=== PATIENT | male | born 1945 | race Caucasian/White ===

== ENCOUNTER 2019-02-15 15:32 | Inpatient (IN) | payer MEDICARE, MEDICAID ==
[~2019-02-15] VITALS: Ht 172.7 cm; Wt 71.4 kg
[~2019-02-15 15:32] MED LIST: ACID1TAB7 PO; DAPT500V6 IV; DOCU-131 PO; FERR325T18 PO; HYDR-3237 PO; INSU100I28 SQ-INSULIN; LISI-170 PO; ONDA4TAB10 PO; [UNRECOGNIZED DRUG - REMARK]
[2019-02-15 16:30] LABS: ALANINE AMINOTRANSFERASE 17 U/L (12-78); ALBUMIN 1.8 g/dL (3.4-5.0); ANION GAP 6 mmol/L (5-15); CALCIUM 8.9 mg/dL (8.5-10.1); CHLORIDE 104 mmol/L (98-107)
--- NOTE | 2019-02-15 16:35 | NUR ---
pt presents to ED with family , pt is hungarian speaking primarily, refusing [employer] at this time, electing to have family translate. daughter is at bedside translating for pt. pt states he has had left foot ulcer for last several months, but noticed "lately" it has been getting bigger. left foot is swollen, pt unable to state if this is different from his baseline. left dorsalis pedis pulse is 3+, cms intact. pt a&o, resps even and unlabored. call light in reach. awaiting lab and xray results at this time.
[2019-02-15 16:37] LABS: ALKALINE PHOSPHATASE 73 U/L (45-117); BILIRUBIN,TOTAL 0.3 mg/dL (0.2-1.0); TOTAL PROTEIN 8.7 g/dL (6.4-8.2)
[2019-02-15 16:53] LABS: BASOPHILS # (AUTO) 0.03 x10^3/uL (0-0.1); BASOPHILS % (AUTO) 0 % (0-1); EOSINOPHILS # (AUTO) 0.17 x10^3/uL (0-0.4); EOSINOPHILS % (AUTO) 2 % (1-7); HCT (SEDRATE) 33.1 % (39.2-51.8); LYMPHOCYTES # (AUTO) 1.73 x10^3/uL (1-3.4); LYMPHOCYTES % (AUTO) 20 % (22-44); MD MORPH REVIEW ONLY; MEAN CORPUSCULAR HEMOGLOBIN 27.3 pg (27.5-34.5); MEAN CORPUSCULAR HGB CONC 32.8 g/dL (33.2-36.2); MEAN CORPUSCULAR VOLUME 83.2 fL (81-97); MEAN PLATELET VOLUME 8.3 fL (7.4-10.4); MONOCYTES # (AUTO) 0.73 x10^3/uL (0.2-0.8); MONOCYTES % (AUTO) 8 % (2-9); NEUTROPHILS # (AUTO) 6.12 x10^3/uL (1.8-6.8); NEUTROPHILS % (AUTO) 70 % (42-75); PLATELET COUNT 528 x10^3/uL (130-400); RED BLOOD COUNT 3.98 x10^6/uL (4.38-5.82); RED CELL DISTRIBUTION WIDTH 15.8 % (9.4-14.8)
[2019-02-15 16:54] LABS: ANISOCYTOSIS 1+; HYPOCHROMIA 1+; MICROCYTOSIS 1+
[2019-02-15 16:55] LABS: <PLATELET ESTIMATE> INCREASED; <PLT MORPHOLOGY> NORMAL PLT MORPH; POLYCHROMASIA 1+
[2019-02-15] MEDS ORDERED: VANCOMYCIN PER PHARMACY MC PRN ×2 (17:00→17:30)
[2019-02-15] MEDS ORDERED: AMPICILLIN/SULBACTAM 3 GM in SODIUM CHLORIDE 0.9% 100 ML IV ONE (17:00)
[2019-02-15] MEDS ORDERED: PHARMACY INSTRUCTION MC SCH (17:30)
[2019-02-15] MEDS ORDERED: ACETAMINOPHEN 325 MG TABLET PO PRN (17:30)
[2019-02-15] MEDS ORDERED: VANCOMYCIN PMX 1GM/200ML 200 ML IV ONE (17:30)
[2019-02-15] MEDS ORDERED: ONDANSETRON 2MG/ML, 2ML IVPush PRN (17:30)
[2019-02-15] MEDS ORDERED: GABAPENTIN 300 MG CAPSULE PO PRN (17:30)
[2019-02-15] MEDS ORDERED: TEMAZEPAM 15 MG CAPSULE PO PRN (17:30)
[2019-02-15] MEDS ORDERED: hydrALAzine 20 MG/ML, 1ML IVPush PRN (17:30)
[2019-02-15] MEDS ORDERED: AMPICILLIN/SULBACTAM 3 GM in SODIUM CHLORIDE 0.9% 100 ML IV SCH (17:30)
[2019-02-15] MEDS: INSULIN LISPRO 100 UNITS/ML, PEN SQ-INSULIN SCH ×2 (17:30→22:00)
[2019-02-15] MEDS ORDERED: VANCOMYCIN 1,900 MG in SODIUM CHLORIDE 0.9% 250 ML IV ONE (17:30)
[2019-02-15] MEDS ORDERED: diabetes med PO (17:34)
[2019-02-15] MEDS ORDERED: bp med PO (17:34)
--- NOTE | 2019-02-15 17:34 | NUR ---
pt unable to recall home meds, states he takes one PO bp med and one PO diabetes med qday. pt unable to recall name of his pharmacy for RN to verify home meds at this time.
[2019-02-15 17:43] LABS: HEMOGLOBIN A1C 7.9 % (4.2-6.3)
--- NOTE | 2019-02-15 17:48 | NUR ---
report given to FARZANA Haq, pt awaiting transport to medical floor.
--- NOTE | 2019-02-15 17:55 | NUR ---
LATE ENTRY D/T PATIENT CARE: PT'S WOUND CLEANSED AND DRESSED. PT EDUCATED REGARDING POC, AGREEABLE TO ADMISSION. PT TRANSPORTED TO MEDICAL FLOOR, NADN AT TRANSPORT.
[2019-02-15] MEDS ORDERED: PHARMACOKINETIC MONITORING MC PRN (18:00)
[2019-02-15] MEDS ORDERED: PHARMACOKINETIC CONSULTATION MC ONE (18:00)
[2019-02-15 18:10] VITALS: BP 139/71
[2019-02-15 19:43] VITALS: BP 151/77
[2019-02-15] MEDS: LISINOPRIL 10 MG TABLET PO SCH (21:43)
[2019-02-15] MEDS: HEPARIN 5,000 UNITS/ML, 1ML SQ SCH (21:44)
[2019-02-16] MEDS: AMPICILLIN/SULBACTAM 3 GM in SODIUM CHLORIDE 0.9% 100 ML IV SCH ×3 (00:52→16:52)
[2019-02-16 01:16] VITALS: BP 123/68
[2019-02-16 05:09] LABS: CREATININE 1.85 mg/dL (0.7-1.3)
[2019-02-16] MEDS: HEPARIN 5,000 UNITS/ML, 1ML SQ SCH ×3 (05:24→21:31)
[2019-02-16] MEDS: INSULIN LISPRO 100 UNITS/ML, PEN SQ-INSULIN SCH ×4 (07:00→21:00)
[2019-02-16] MEDS: LISINOPRIL 10 MG TABLET PO SCH ×2 (08:43→21:31)
[2019-02-16 09:50] VITALS: BP 110/64
[2019-02-16 12:12] VITALS: BP 126/69
[2019-02-16 19:54] VITALS: BP 124/64
[2019-02-17] MEDS: AMPICILLIN/SULBACTAM 3 GM in SODIUM CHLORIDE 0.9% 100 ML IV SCH ×3 (00:51→17:18)
[2019-02-17 01:26] VITALS: BP 129/68
[2019-02-17] MEDS: HEPARIN 5,000 UNITS/ML, 1ML SQ SCH ×3 (05:37→21:05)
[2019-02-17 05:48] LABS: % IRON SATURATION 18 % (20-55); ANION GAP 5 mmol/L (5-15); CALCIUM 8.8 mg/dL (8.5-10.1); CHLORIDE 106 mmol/L (98-107); CREATININE 1.75 mg/dL (0.7-1.3); IRON LEVEL 25 mcg/dL (65-175); TOTAL IRON BINDING CAPACITY 142 mcg/dL (250-450)
[2019-02-17 05:50] LABS: VANCOMYCIN,TROUGH 11.2 mcg/mL (5.0-10.0)
[2019-02-17] MEDS ORDERED: VANCOMYCIN 1,900 MG in SODIUM CHLORIDE 0.9% 250 ML IV ONE (06:30)
[2019-02-17] MEDS: INSULIN LISPRO 100 UNITS/ML, PEN SQ-INSULIN SCH ×4 (07:00→21:00)
[2019-02-17 08:24] VITALS: BP 149/78
[2019-02-17 08:45] VITALS: BP 130/75
[2019-02-17] MEDS: LISINOPRIL 10 MG TABLET PO SCH ×2 (08:55→21:00)
[2019-02-17] MEDS: FERROUS SULFATE 325 MG TABLET PO SCH ×3 (08:55→17:16)
[2019-02-17 13:50] VITALS: BP 122/67
[2019-02-17 19:29] VITALS: BP 118/64
[2019-02-18] MEDS: AMPICILLIN/SULBACTAM 3 GM in SODIUM CHLORIDE 0.9% 100 ML IV SCH ×3 (00:56→16:10)
[2019-02-18 01:05] VITALS: BP 112/68
[2019-02-18] MEDS: HEPARIN 5,000 UNITS/ML, 1ML SQ SCH ×3 (05:35→19:47)
[2019-02-18 06:01] LABS: ANION GAP 3 mmol/L (5-15); CHLORIDE 107 mmol/L (98-107)
[2019-02-18 06:03] LABS: CREATININE 1.82 mg/dL (0.7-1.3)
[2019-02-18 06:58] VITALS: BP 114/68
[2019-02-18] MEDS: INSULIN LISPRO 100 UNITS/ML, PEN SQ-INSULIN SCH ×4 (07:00→20:14)
[2019-02-18] MEDS: FERROUS SULFATE 325 MG TABLET PO SCH ×3 (08:00→17:00)
[2019-02-18] MEDS: LISINOPRIL 10 MG TABLET PO SCH ×2 (09:00→19:50)
[2019-02-18 12:50] VITALS: BP 117/72
[2019-02-18] MEDS ORDERED: hydrALAzine 20 MG/ML, 1ML IV PRN (15:30)
[2019-02-18] MEDS ORDERED: METOPROLOL 1 MG/ML, 5ML IV PRN (15:30)
[2019-02-18] MEDS ORDERED: DIPHENHYDRAMINE 50 MG/ML, 1ML IVPush PRN (15:30)
[2019-02-18] MEDS ORDERED: HYDROmorphone 2 MG/ML, 1ML IVPush PRN (15:30)
[2019-02-18] MEDS ORDERED: HALOPERIDOL 5 MG/ML IV PRN (15:30)
[2019-02-18] MEDS ORDERED: LABETALOL 5MG/ML, 20ML IV PRN (15:30)
[2019-02-18] MEDS ORDERED: FENTANYL PF 100 MCG/2ML IV PRN (15:30)
[2019-02-18] MEDS ORDERED: PROCHLORPERAZINE 5 MG/ML, 2ML IV PRN (15:30)
[2019-02-18] MEDS ORDERED: OXYcodone 5 MG/5 ML ORAL.SOL UDC PO PRN (15:30)
[2019-02-18] MEDS ORDERED: PROMETHAZINE 25 MG/ML, 1ML IV PRN (15:30)
[2019-02-18] MEDS ORDERED: MEPERIDINE/PF 25MG/0.5ML IVPush PRN (15:30)
[2019-02-18] MEDS ORDERED: FENTANYL PF 100 MCG/2ML ONE (15:31)
[2019-02-18] MEDS ORDERED: BUPIVACAINE/PF 0.5% ONE (15:44)
[2019-02-18] MEDS ORDERED: LIDOCAINE-MPF 1%, 2ML ONE (15:44)
[2019-02-18] MEDS ORDERED: LIDOCAINE 1%, 20ML ONE (15:44)
[2019-02-18] MEDS ORDERED: DEXAMETHASONE 4 MG/ML, 1ML ONE (16:28)
[2019-02-18] MEDS ORDERED: SUCCINYLCHOLINE 20 MG/ML, 10ML ONE (16:28)
[2019-02-18] MEDS ORDERED: NEOSTIGMINE 1 MG/ML, 10ML ONE (16:28)
[2019-02-18] MEDS ORDERED: ONDANSETRON 2MG/ML, 2ML ONE (16:28)
[2019-02-18] MEDS ORDERED: VANCOMYCIN 1,000 MG ONE ×2 (16:28→16:30)
[2019-02-18] MEDS ORDERED: CEFAZOLIN 1,000 MG ONE (16:28)
[2019-02-18] MEDS ORDERED: PROPOFOL 10 MG/ML, 20ML ONE (16:28)
[2019-02-18] MEDS ORDERED: GLYCOPYRROLATE 0.2MG/1ML, 5ML ONE (16:28)
[2019-02-18] MEDS ORDERED: ROCURONIUM 10MG/ML,5ML ONE (16:28)
[2019-02-18 17:52] VITALS: BP 132/76
[2019-02-18 19:34] VITALS: BP 137/79
[2019-02-19] MEDS: AMPICILLIN/SULBACTAM 3 GM in SODIUM CHLORIDE 0.9% 100 ML IV SCH ×3 (00:34→18:11)
[2019-02-19 01:08] VITALS: BP 129/72
[2019-02-19] MEDS: HEPARIN 5,000 UNITS/ML, 1ML SQ SCH ×3 (04:42→21:52)
[2019-02-19 05:04] LABS: CHLORIDE 106 mmol/L (98-107)
[2019-02-19 05:08] LABS: ANION GAP 6 mmol/L (5-15); CALCIUM 8.6 mg/dL (8.5-10.1); CREATININE 1.79 mg/dL (0.7-1.3)
[2019-02-19] MEDS: INSULIN LISPRO 100 UNITS/ML, PEN SQ-INSULIN SCH ×4 (07:00→21:53)
[2019-02-19 08:00] VITALS: BP 112/68
[2019-02-19] MEDS: LISINOPRIL 10 MG TABLET PO SCH ×2 (09:00→21:53)
[2019-02-19] MEDS: FERROUS SULFATE 325 MG TABLET PO SCH ×3 (09:38→18:11)
[2019-02-19] MEDS: MICAFUNGIN 100 MG in SODIUM CHLORIDE 0.9% 100 ML IV SCH (12:44)
[2019-02-19 13:59] VITALS: BP 111/70
[2019-02-19 18:46] VITALS: BP 120/61
[2019-02-19 21:50] VITALS: BP 143/69
[2019-02-20 01:00] VITALS: BP 140/68
[2019-02-20] MEDS: AMPICILLIN/SULBACTAM 3 GM in SODIUM CHLORIDE 0.9% 100 ML IV SCH ×3 (02:12→17:35)
[2019-02-20] MEDS: HEPARIN 5,000 UNITS/ML, 1ML SQ SCH ×2 (05:12→14:31)
[2019-02-20 05:20] LABS: CHLORIDE 105 mmol/L (98-107)
[2019-02-20 05:23] LABS: ANION GAP 5 mmol/L (5-15); CALCIUM 8.9 mg/dL (8.5-10.1); CREATININE 1.69 mg/dL (0.7-1.3)
[2019-02-20] MEDS: INSULIN LISPRO 100 UNITS/ML, PEN SQ-INSULIN SCH ×4 (07:00→20:40)
[2019-02-20 08:24] VITALS: BP 124/63
[2019-02-20] MEDS: LISINOPRIL 10 MG TABLET PO SCH ×2 (09:49→20:56)
[2019-02-20] MEDS: FERROUS SULFATE 325 MG TABLET PO SCH ×3 (09:49→17:35)
[2019-02-20] MEDS: MICAFUNGIN 100 MG in SODIUM CHLORIDE 0.9% 100 ML IV SCH (12:51)
[2019-02-20 14:00] VITALS: BP 126/76
[2019-02-20 18:50] VITALS: BP 129/73
[2019-02-21 01:51] VITALS: BP 116/61
[2019-02-21] MEDS: AMPICILLIN/SULBACTAM 3 GM in SODIUM CHLORIDE 0.9% 100 ML IV SCH ×3 (02:32→16:59)
[2019-02-21] MEDS: HEPARIN 5,000 UNITS/ML, 1ML SQ SCH ×3 (05:40→20:36)
[2019-02-21] MEDS: INSULIN LISPRO 100 UNITS/ML, PEN SQ-INSULIN SCH ×4 (07:00→20:36)
[2019-02-21 09:01] VITALS: BP 129/69
[2019-02-21] MEDS: FERROUS SULFATE 325 MG TABLET PO SCH ×3 (09:01→16:59)
[2019-02-21] MEDS: LISINOPRIL 10 MG TABLET PO SCH ×2 (09:01→20:36)
[2019-02-21] MEDS: DAPTOMYCIN 600 MG in SODIUM CHLORIDE 0.9% 100 ML IVPB SCH (11:38)
[2019-02-21] MEDS: MICAFUNGIN 100 MG in SODIUM CHLORIDE 0.9% 100 ML IV SCH (12:49)
[2019-02-21 14:00] VITALS: BP 127/69
[2019-02-21 20:41] VITALS: BP 138/71
[2019-02-22] MEDS: AMPICILLIN/SULBACTAM 3 GM in SODIUM CHLORIDE 0.9% 100 ML IV SCH ×3 (02:17→17:59)
[2019-02-22 03:26] VITALS: BP 129/72
[2019-02-22 06:18] LABS: ANION GAP 6 mmol/L (5-15); CHLORIDE 106 mmol/L (98-107); CREATININE 1.45 mg/dL (0.7-1.3)
[2019-02-22] MEDS: HEPARIN 5,000 UNITS/ML, 1ML SQ SCH ×3 (06:28→21:26)
[2019-02-22 06:48] VITALS: BP 111/67
[2019-02-22] MEDS: INSULIN LISPRO 100 UNITS/ML, PEN SQ-INSULIN SCH ×4 (07:00→21:00)
[2019-02-22] MEDS: FERROUS SULFATE 325 MG TABLET PO SCH ×3 (08:13→16:34)
[2019-02-22] MEDS: LISINOPRIL 10 MG TABLET PO SCH ×2 (08:14→21:00)
[2019-02-22] MEDS: MICAFUNGIN 100 MG in SODIUM CHLORIDE 0.9% 100 ML IV SCH (12:30)
[2019-02-22] MEDS: DAPTOMYCIN 600 MG in SODIUM CHLORIDE 0.9% 100 ML IVPB SCH (12:48)
[2019-02-22 15:05] VITALS: BP 104/64
[2019-02-22 20:06] VITALS: BP 94/56
[2019-02-23] MEDS: AMPICILLIN/SULBACTAM 3 GM in SODIUM CHLORIDE 0.9% 100 ML IV SCH ×3 (02:06→18:02)
[2019-02-23 02:08] VITALS: BP 95/63
[2019-02-23] MEDS: HEPARIN 5,000 UNITS/ML, 1ML SQ SCH ×3 (05:43→21:48)
[2019-02-23] MEDS: INSULIN LISPRO 100 UNITS/ML, PEN SQ-INSULIN SCH ×4 (07:00→21:00)
[2019-02-23 07:29] VITALS: BP 113/73
[2019-02-23] MEDS: FERROUS SULFATE 325 MG TABLET PO SCH ×3 (07:32→18:02)
[2019-02-23] MEDS: LISINOPRIL 10 MG TABLET PO SCH ×2 (07:32→21:00)
[2019-02-23 07:42] LABS: ALANINE AMINOTRANSFERASE 16 U/L (12-78); ALBUMIN 1.9 g/dL (3.4-5.0); ANION GAP 7 mmol/L (5-15); CALCIUM 8.9 mg/dL (8.5-10.1); CHLORIDE 105 mmol/L (98-107); CREATININE 1.61 mg/dL (0.7-1.3)
[2019-02-23 07:49] LABS: ALKALINE PHOSPHATASE 76 U/L (45-117); BILIRUBIN,TOTAL 0.4 mg/dL (0.2-1.0); CREATINE KINASE, TOTAL 49 U/L (39-308); TOTAL PROTEIN 8.7 g/dL (6.4-8.2)
[2019-02-23 08:19] LABS: BASOPHILS # (AUTO) 0.06 x10^3/uL (0-0.1); BASOPHILS % (AUTO) 1 % (0-1); EOSINOPHILS # (AUTO) 0.25 x10^3/uL (0-0.4); EOSINOPHILS % (AUTO) 5 % (1-7); LYMPHOCYTES # (AUTO) 1.75 x10^3/uL (1-3.4); LYMPHOCYTES % (AUTO) 33 % (22-44); MD NO; MEAN CORPUSCULAR HEMOGLOBIN 26.9 pg (27.5-34.5); MEAN CORPUSCULAR HGB CONC 32.6 g/dL (33.2-36.2); MEAN CORPUSCULAR VOLUME 82.5 fL (81-97); MEAN PLATELET VOLUME 8.8 fL (7.4-10.4); MONOCYTES # (AUTO) 0.53 x10^3/uL (0.2-0.8); MONOCYTES % (AUTO) 10 % (2-9); NEUTROPHILS # (AUTO) 2.76 x10^3/uL (1.8-6.8); NEUTROPHILS % (AUTO) 52 % (42-75); PLATELET COUNT 508 x10^3/uL (130-400); RED BLOOD COUNT 3.39 x10^6/uL (4.38-5.82); RED CELL DISTRIBUTION WIDTH 15.3 % (9.4-14.8)
[2019-02-23] MEDS: MICAFUNGIN 100 MG in SODIUM CHLORIDE 0.9% 100 ML IV SCH (11:50)
[2019-02-23 13:02] VITALS: BP 123/74
[2019-02-23] MEDS: DAPTOMYCIN 600 MG in SODIUM CHLORIDE 0.9% 100 ML IVPB SCH (13:44)
[2019-02-23 20:30] VITALS: BP 107/60
[2019-02-24] MEDS: AMPICILLIN/SULBACTAM 3 GM in SODIUM CHLORIDE 0.9% 100 ML IV SCH (01:59)
[2019-02-24 02:37] VITALS: BP 116/70
[2019-02-24] MEDS: HEPARIN 5,000 UNITS/ML, 1ML SQ SCH ×3 (05:44→21:01)
[2019-02-24 06:53] VITALS: BP 123/64
[2019-02-24] MEDS: INSULIN LISPRO 100 UNITS/ML, PEN SQ-INSULIN SCH ×4 (07:00→21:00)
[2019-02-24] MEDS: LISINOPRIL 10 MG TABLET PO SCH ×2 (08:21→21:00)
[2019-02-24] MEDS: FERROUS SULFATE 325 MG TABLET PO SCH ×3 (08:21→17:51)
[2019-02-24] MEDS ORDERED: LISI-167 PO (11:35)
[2019-02-24] MEDS ORDERED: ACET325T14 PO (11:35)
[2019-02-24] MEDS ORDERED: DAPT500V6 IV (11:35)
[2019-02-24] MEDS ORDERED: MICA50VI IV (11:35)
[2019-02-24] MEDS ORDERED: FERR-51 PO (11:35)
[2019-02-24] MEDS ORDERED: GABA300C10 PO (11:35)
[2019-02-24] MEDS ORDERED: METF500T17 PO (11:54)
[2019-02-24] MEDS: MICAFUNGIN 100 MG in SODIUM CHLORIDE 0.9% 100 ML IV SCH (12:15)
[2019-02-24 13:17] VITALS: BP 118/69
[2019-02-24] MEDS: DAPTOMYCIN 600 MG in SODIUM CHLORIDE 0.9% 100 ML IVPB SCH (13:28)
[2019-02-24 20:57] VITALS: BP 112/72
[2019-02-25 01:36] VITALS: BP 109/68
[2019-02-25] MEDS: HEPARIN 5,000 UNITS/ML, 1ML SQ SCH ×2 (04:49→13:15)
[2019-02-25] MEDS: INSULIN LISPRO 100 UNITS/ML, PEN SQ-INSULIN SCH ×2 (07:00→11:00)
[2019-02-25] MEDS: LISINOPRIL 10 MG TABLET PO SCH (08:20)
[2019-02-25] MEDS: FERROUS SULFATE 325 MG TABLET PO SCH ×2 (08:20→11:49)
[2019-02-25 08:23] VITALS: BP 126/68
[2019-02-25] MEDS: MICAFUNGIN 100 MG in SODIUM CHLORIDE 0.9% 100 ML IV SCH (11:49)
[2019-02-25] MEDS: DAPTOMYCIN 600 MG in SODIUM CHLORIDE 0.9% 100 ML IVPB SCH (13:14)
== END 2019-02-25 14:18 | DRG 981 ==
LOC: ED 16:24 → EDIP 17:13 → 3NE 17:36
PROVIDERS: ADMIT Internal Medicine; ATTEND Internal Medicine
PROC: 02HV33Z Insertion of Infusion Device into Superior Vena Cava, Percutaneous Approach (ICD-10-PCS; 2019-02-15)
PROC: B5181ZA Fluoroscopy of Superior Vena Cava using Low Osmolar Contrast, Guidance (ICD-10-PCS; 2019-02-15)
PROC: B548ZZA Ultrasonography of Superior Vena Cava, Guidance (ICD-10-PCS; 2019-02-15)
PROC: 0QBM0ZZ Excision of Left Tarsal, Open Approach (ICD-10-PCS; 2019-02-18)
PROC: 0L8P0ZZ Division of Left Lower Leg Tendon, Open Approach (ICD-10-PCS; principal; 2019-02-18 16:00)
DX: E11.610 Type 2 diabetes mellitus with diabetic neuropathic arthropathy (principal); E43 Unspecified severe protein-calorie malnutrition; N17.0 Acute kidney failure with tubular necrosis; M86.172 Other acute osteomyelitis, left ankle and foot; L03.116 Cellulitis of left lower limb; E11.69 Type 2 diabetes mellitus with other specified complication; E11.621 Type 2 diabetes mellitus with foot ulcer; L97.529 Non-pressure chronic ulcer of other part of left foot with unspecified severity; I12.9 Hypertensive chronic kidney disease with stage 1 through stage 4 chronic kidney disease, or unspecified chronic kidney disease; D50.9 Iron deficiency anemia, unspecified; D63.8 Anemia in other chronic diseases classified elsewhere; E11.22 Type 2 diabetes mellitus with diabetic chronic kidney disease; E11.40 Type 2 diabetes mellitus with diabetic neuropathy, unspecified; E66.9 Obesity, unspecified; G60.8 Other hereditary and idiopathic neuropathies; H91.90 Unspecified hearing loss, unspecified ear; M19.90 Unspecified osteoarthritis, unspecified site; N18.3 Chronic kidney disease, stage 3 (moderate); Z86.14 Personal history of Methicillin resistant Staphylococcus aureus infection; Z89.439 Acquired absence of unspecified foot; Z68.23 Body mass index [BMI] 23.0-23.9, adult
CPT/HCPCS: 36415; 36573; 80048; 80053; 80202; 82550; 82565; 82962; 83036; 83540; 83550; 83605; 84145; 84520; 85014; 85018; 85025; 85651; 86140; 87040; 87070; 87075; 87077; 87081; 87106; 87186; 87205; 93005; 96374; 99285; G0378; J0295; J0690; J0878; J1100; J1644; J2248; J2405; J2704; J2710; J3010; J3370; C1751; J0330; J1815; J7050

== ENCOUNTER → 2019-04-10 | Outpatient (CLI) | payer MEDICARE, MEDICAID ==
[~2019-04-10] MED LIST changes: +ACET325T14 PO; +FERR-51 PO; +GABA300C10 PO; +LISI-167 PO; +METF500T17 PO; +MICA50VI IV; +bp med PO; +diabetes med PO
== END | disposition home or self-care (01) ==
LOC: WOUND 07:55
PROVIDERS: ATTEND Family Medicine
DX: E11.621 Type 2 diabetes mellitus with foot ulcer (principal); L97.421 Non-pressure chronic ulcer of left heel and midfoot limited to breakdown of skin; E11.40 Type 2 diabetes mellitus with diabetic neuropathy, unspecified; E11.69 Type 2 diabetes mellitus with other specified complication; M86.671 Other chronic osteomyelitis, right ankle and foot; E11.22 Type 2 diabetes mellitus with diabetic chronic kidney disease; I12.9 Hypertensive chronic kidney disease with stage 1 through stage 4 chronic kidney disease, or unspecified chronic kidney disease; N18.9 Chronic kidney disease, unspecified; Z89.431 Acquired absence of right foot
CPT/HCPCS: 97597; G0463